=== PATIENT | female | born 1930 | race Caucasian/White ===

== ENCOUNTER 2017-07-02 17:30 | Inpatient (IN) | payer OTHER, MEDICAID ==
[~2017-07-02] VITALS: Ht 152.4 cm; Wt 62.1 kg
[2017-07-02 17:37] VITALS: BP 117/57
[2017-07-02] MEDS ORDERED: LASIX 40 MG TAB40 M2 PO (17:45)
[2017-07-02] MEDS ORDERED: METOLAZONE 2.52.5 M1 PO (17:46)
[2017-07-02] MEDS ORDERED: CARTIA XT120 M1 PO (17:47)
[2017-07-02] MEDS ORDERED: LISINOPRIL5 MG PO (17:48)
[2017-07-02] MEDS ORDERED: JANTOVEN2 MG PO (17:48)
[2017-07-02 18:02] LABS: HEMATOCRIT 32.3 % (37.0-47.0); HEMOGLOBIN 10.4 gm/dL (12.0-15.0); MCH 27.2 pg (26.0-34.0); MCHC 32.1 g/dL (28.0-37.0); MCV 84.8 fL (80.0-100.0); MPV 7.2 fl. (7.2-11.1); NUCLEATED RBCS 0 /100WBC; PLATELET COUNT* 278 thou/uL (150-400); RBC 3.81 mil/uL (4.20-5.00); RDW-CV 17.4 % (10.5-14.5); WBC 9.2 thou/uL (4.0-11.0)
[2017-07-02 18:14] LABS: CALCIUM 8.5 mg/dL (8.5-10.1); CREATININE 1.8 mg/dL (0.6-1.3); POTASSIUM 4.6 mmol/L (3.5-5.1)
[2017-07-02 18:25] LABS: ALBUMIN 2.9 g/dL (3.4-5.0); MAGNESIUM 2.2 mg/dL (1.8-2.4); TOTAL BILIRUBIN 0.7 mg/dL (<0.1-1.0); TOTAL PROTEIN 7.2 g/dL (6.4-8.2)
[2017-07-02 19:13] LABS: BE 1.1 mmol/L (-2 to +3); PCO2 37.2 mmHg (35.0-45.0); PO2 92.2 mmHg (75.0-100.0); pH 7.446 (7.340-7.450)
[2017-07-02 19:39] LABS: ABSOLUTE BASOPHILS 0.1 thou/uL (0.0-0.2); ABSOLUTE EOSINOPHILS 0.1 thou/uL (0.0-0.7); ABSOLUTE LYMPHOCYTES 0.6 thou/uL (0.8-5.3); ABSOLUTE NEUTROPHILS 7.5 thou/uL (1.6-8.1); ANISOCYTOSIS 1+; PLATELET ESTIMATE ADEQUATE
[2017-07-02 19:42] LABS: URINE BILIRUBIN NEGATIVE (Negative); URINE BLOOD TRACE (Negative); URINE CLARITY CLEAR; URINE COLOR STRAW; URINE GLUCOSE-RANDOM NEGATIVE (Negative); URINE KETONES NEGATIVE (Negative); URINE LEUKOCYTES-REFLEX NEGATIVE (Negative); URINE NITRITE-REFLEX NEGATIVE (Negative); URINE PROTEIN NEGATIVE (Negative); URINE UROBILINOGEN 0.2 E.U./dl (0.2-1.0)
[2017-07-02 20:21] VITALS: BP 116/64
[2017-07-03] VITALS: BP 115/75
[2017-07-03 04:00] VITALS: BP 130/75
[2017-07-03 08:25] LABS: APTT 30.8 Seconds (25.0-31.3); INR 1.8; PROTIME 17.7 Seconds (9.20-11.50)
[2017-07-03 08:29] VITALS: BP 137/80
[2017-07-03 12:17] LABS: SOURCE THORACENTESIS
[2017-07-03 15:43] VITALS: BP 95/68
--- NOTE | 2017-07-03 16:50 | 2DMMODE ---
[place] [address] 2 D/M-MODE ECHOCARDIOGRAM Name: SCOTT CALIXTO Room: [address] IN [facility]#: [id number] Admission: 07/02/17 Attend Phys: Love Calvillo, Discharge: Date of : [birth year] Date of Service: 07/03/17 1649 Report #: [id number] THIS REPORT FOR: //name// APPROVED REPORT Study performed: 07/03/2017 14:15:03 EXAM: Comprehensive 2D, Doppler, and color-flow Echocardiogram Patient Location: In-Patient Room #: [facility] Status: routine BSA: 1.61 HR: 88 bpm BP: 137/80 mmHg Rhythm: NSR Other Information Study Quality: Good Indications Congestive Heart Failure Dyspnea Pleural Effusion 2D Dimensions LVEF(%): 76.17 (>50%) IVSd: 8.80 (7-11mm) LVOT Diam: 15.99 (18-24mm) LVDd: 26.35 mm PWd: 9.42 (7-11mm) LVDs: 15.00 (25-40mm) Aortic Root: 28.46 mm Petty's LVEF: 76.17 % Volumes Left Atrial Volume (Systole) LA ESV Index: 50.70 mL/m2 Aortic Valve AoV Peak Addison.: 1.81 m/s AO Peak Gr.: 13.15 mmHg LVOT Max P.22 mmHg AO Mean Gr.: 7.91 mmHg LVOT Mean P.20 mmHg LVOT Max V: 0.75 m/s AO V2 VTI: 31.07 cm LVOT Mean V: 0.52 m/s ADRIEN (VTI): 0.94 cm2 LVOT V1 VTI: 14.62 [place] [address] 2 D/M-MODE ECHOCARDIOGRAM Name: SCOTT CALIXTO Room: [address] IN [facility]#: [id number] Admission: 07/02/17 Attend Phys: Love Calvillo, Discharge: Date of : [birth year] Date of Service: 07/03/17 1649 Report #: [id number] Mitral Valve MV Mean Gr.: 6.63 mmHg Pulmonary Valve PV Peak Addison.: 0.96 m/s PV Peak Gr.: 3.68 mmHg Tricuspid Valve TR Peak Gr.: 17.13 mmHg RVSP: 32.00 mmHg Left Ventricle The left ventricle is normal size. There is normal LV segmental wall motion. There is normal left ventricular wall thickness. Left ventricular systolic function is normal. The left ventricular ejection fraction is within the normal range. LVEF is 60-65%. The left ventricular diastolic function is normal. Right Ventricle Right ventricle is moderately dilated. Right ventricle is moderately hypokinetic. Pacemaker lead is present in the right ventricle. Atria Left atrium is severely dilated. Right atrium is severely dilated. Aortic Valve Moderate aortic valve sclerosis. No aortic regurgitation is present. Mild to moderate aortic stenosis. Mitral Valve The mitral valve is normal in structure. Mild mitral regurgitation. No evidence of mitral valve stenosis. Tricuspid Valve The tricuspid valve is normal in structure. Severe tricuspid regurgitation. The RVSP is 40 mmHg. Pulmonic Valve Pulmonic valve is not well visualized. Mild pulmonic regurgitation. Great Vessels The aortic root is normal in size. IVC is dilated and collapses <50% with inspiration. Pericardium There is no peric[place] [address] 2 D/M-MODE ECHOCARDIOGRAM Name: SCOTT CALIXTO Armando Room: [address] IN [facility].#: [id number] Admission: 07/02/17 Attend Phys: Love Calvillo, Discharge: Date of : [birth year] Date of Service: 07/03/17 1649 Report #: [id number] <Conclusion> LVEF is 60-65%. Right ventricle is moderately dilated. Left atrium is severely dilated. Right atrium is severely dilated. Mild to moderate aortic stenosis. Mild mitral regurgitation. Severe tricuspid regurgitation. The RVSP is 40 mmHg. <ELECTRONICALLY SIGNED> By: Jens Hart MD, FACC 07/03/17 1649 48 Jens Hart MD, [facility] /INF
[2017-07-03 20:08] VITALS: BP 107/65
[2017-07-04] VITALS: BP 90/54
[2017-07-04 04:00] VITALS: BP 118/70
[2017-07-04 05:24] LABS: ABSOLUTE LYMPHOCYTES 0.4 thou/uL (0.8-5.3); ABSOLUTE NEUTROPHILS 7.4 thou/uL (1.6-8.1); BASOPHILS 0.1 %; HEMATOCRIT 31.3 % (37.0-47.0); LYMPHOCYTES 4.3 %; MCH 27.2 pg (26.0-34.0); MCHC 31.8 g/dL (28.0-37.0); MCV 85.3 fL (80.0-100.0); MONOCYTES 11.2 %; MPV 7.2 fl. (7.2-11.1); NUCLEATED RBCS 0 /100WBC; PLATELET COUNT* 243 thou/uL (150-400); POLYS 84.4 %; RBC 3.67 mil/uL (4.20-5.00); RDW-CV 17.7 % (10.5-14.5); WBC 8.7 thou/uL (4.0-11.0)
[2017-07-04 05:30] LABS: APTT 30.9 Seconds (25.0-31.3); PROTIME 19.5 Seconds (9.20-11.50)
[2017-07-04 06:04] LABS: CALCIUM 8.3 mg/dL (8.5-10.1); POTASSIUM 4.6 mmol/L (3.5-5.1)
[2017-07-04 08:00] VITALS: BP 108/61
[2017-07-04 11:52] VITALS: BP 111/61
[2017-07-04 12:05] LABS: BODY FLUID LDH 94 IU/L (()); BODY FLUID PROTEIN 2.1 g/dL (())
[2017-07-04 15:35] VITALS: BP 124/52
[2017-07-04 20:00] VITALS: BP 84/43
[2017-07-05] VITALS: BP 100/54
[2017-07-05 04:00] VITALS: BP 90/54
[2017-07-05 05:43] LABS: ABSOLUTE LYMPHOCYTES 0.4 thou/uL (0.8-5.3); ABSOLUTE MONOCYTES 0.9 thou/uL (0.0-1.2); ABSOLUTE NEUTROPHILS 5.8 thou/uL (1.6-8.1); BASOPHILS 0.1 %; HEMATOCRIT 30.4 % (37.0-47.0); HEMOGLOBIN 9.8 gm/dL (12.0-15.0); LYMPHOCYTES 5.9 %; MCH 27.3 pg (26.0-34.0); MCHC 32.2 g/dL (28.0-37.0); MCV 84.6 fL (80.0-100.0); MONOCYTES 12.8 %; MPV 7.3 fl. (7.2-11.1); NUCLEATED RBCS 0 /100WBC; PLATELET COUNT* 232 thou/uL (150-400); POLYS 81.2 %; RBC 3.59 mil/uL (4.20-5.00); RDW-CV 17.8 % (10.5-14.5); WBC 7.1 thou/uL (4.0-11.0)
[2017-07-05 05:53] LABS: APTT 30.3 Seconds (25.0-31.3); INR 1.6; PROTIME 15.4 Seconds (9.20-11.50)
[2017-07-05 06:17] LABS: CALCIUM 8.3 mg/dL (8.5-10.1); CREATININE 1.9 mg/dL (0.6-1.3); POTASSIUM 4.1 mmol/L (3.5-5.1)
[2017-07-05 08:09] VITALS: BP 95/53
[2017-07-05] MEDS ORDERED: LEVAQUIN 250 M250 MG PO (11:54)
[2017-07-05] MEDS ORDERED: ZESTRIL5 MG PO (11:55)
[2017-07-05] MEDS ORDERED: TYLENOL325 MG PO (12:01)
[2017-07-05] MEDS ORDERED: APAP650 PO (12:02)
[2017-07-05] MEDS ORDERED: LASIX 20 MG TAB20 MG PO (12:03)
[2017-07-05] MEDS ORDERED: HYDROXYZINE HCL25 M1 PO (12:05)
[2017-07-05] MEDS ORDERED: DUONEB 2.5-0.5 M3 ML INH (12:06)
[2017-07-05 12:09] VITALS: BP 95/53
[2017-07-05] MEDS ORDERED: ONDANSETRON HCL4 M2 PO (12:57)
--- NOTE | 2017-07-05 13:59 | CNG ---
[address] [address] CYTO-NONGYN REPORT PROCEDURE Name: SCOTT CONTI Room: [address] IN [facility].#: [id number] Admission: 07/02/17 Date of : [birth year] Discharge: Report #: [id number] Path Case #: [id number] CYTOPATHOLOGY REPORT COLLECTION DATE: 07/03/2017 RECEIVED DATE: 07/04/2017 SUBMITTING PHYS: Dr. Krish Hooks OTHER PHYS: Dr. Mele King CLINICAL HISTORY: Respiratory distress, pulmonary effusion and leg weeping SPECIMEN(S) RECEIVED: A.Pleural fluid, Right * * * * * * * * * * * * FINAL DIAGNOSIS: A. Pleural fluid, Right: - No malignant cells identified. - Few reactive mesothelial cells and inflammatory cells present. (GABE:mml; 07/05/2017) PATHOLOGIST: Leighton Jarvis M.D. REPORT ELECTRONICALLY SIGNED BY: Leighton Jarvis M.D. DATE/TIME: 07/05/2017 13:58 * * * * * * * * * * * * GROSS PATHOLOGY: A. Pleural fluid, Right: The specimen is submitted fixed, labeled "Scott Conti". Received by the Cytology Department is 65 mL of cloudy yellow fluid. One ThinPrep slide and a formalin fixed cell block were prepared. (lg07.04.2017) FELT STRIP FINISHER(S): Lina Hughes MAXIMO([facility]) INITIAL CPT CODE(S): A; 34704, 22839 Professional services performed by [facility] at [facility], [address] [place], [place] [address]ula, [place] [address]. Technical services performed by [facility] at [address] [place] [address]., [address], [place] [address]. [facility] [address] [place] [address], [address] [place] [address] PHONE: [phone] DIRECTOR: Wali Baker M.D. [address] [address] CYTO-NONGYN REPORT PROCEDURE Name: SCOTT CONTI Room: [address] IN ..#: [id number] Admission: 07/02/17 Date of : [birth year] Discharge: Report #: [id number] Path Case #: [id number] * * * END OF REPORT * * *
--- NOTE | 2017-07-05 18:15 | CON ---
[address] [address] CONSULTATION Name: DURGASCOTT L Room: [address] IN .R.#: [id number] Admission: 07/02/17 Attend Phys: Love Calvillo MD Discharge: 07/05/17 Date of : [birth year] Report #: [id number] THIS REPORT FOR: //name// CC: Love ESQUIVELEW SHERRI DATE OF SERVICE: 07/05/2017 Cardiology Consultation HISTORY OF PRESENT ILLNESS: The patient is an 87-year-old single white female who I was asked to see in the hospital today after she complained of being short of breath. The patient's history was obtained from the patient herself, some old records. Unfortunately, the patient has never been hospitalized here at [facility] before. I did find a note from my partner, Dr. Magaña, who saw her back in October 2015 prior to undergoing hip, knee replacement surgery. The patient has a history of permanent atrial fibrillation and had a [employer] single lead pacemaker inserted in January 2013. However, she is not sure what hospital the pacemaker was inserted at. When Dr. Magaña saw the patient back in 2015, she denied any significant complaints. The patient had an echocardiogram in 2013, showed an ejection fraction 55%. Stress test in 2012 showed no evidence of ischemia. The patient is not very active because of her age. She currently lives with a daughter in [place], [place]. She apparently has been followed by [facility] cardiovascular consultants. I obtained some records that notes that the patient was actually just seen in the Cardiology Clinic on July 01 or 4 days ago[address] She saw Dr. Mihai Child for her atrial fibrillation. Apparently, no changes were made at that time. The patient was brought to the emergency room 3 days ago with shortness of breath and a cough. The patient was weak and had edema. Because of shortness of breath, I was asked to see her for further evaluation and treatment. She denies any recent chest pain, palpitations or syncope. PAST MEDICAL HISTORY: Otherwise significant for knee replacement. Apparently, she had an embolectomy from the left leg in the past. She has had a hysterectomy. She has a history of permanent atrial fibrillation, sick sinus syndrome, chronic kidney disease. MEDICATIONS: On admission consisted of Lasix, metolazone, Cardizem-CD, warfarin, lisinopril. ALLERGIES: She had an intolerance to SULAR. FAMILY HISTORY: No history of heart disease. SOCIAL HISTORY: She is . No longer smokes. [place] [address] CONSULTATION Name: SCOTT CALIXTO Room: [address]#: [id number] Admission: 07/02/17 Attend Phys: Love Calvillo MD Discharge: 07/05/17 Date of : [birth year] Report #: [id number] REVIEW OF SYSTEMS: The patient states she has had a stroke in the past. No history of asthma. She has had a peptic ulcer. She has had chronic kidney disease, no cancer. No psychiatric illness. PHYSICAL EXAMINATION: GENERAL: Revealed an elderly frail appearing female who was lying in bed. She appeared in no distress. VITAL SIGNS: She had a blood pressure of 100/60, pulse is 90. She is afebrile. HEENT: She was anicteric. Conjunctivae were pale. Mucous membranes appear dry. NECK: Veins do not appear distended. CHEST: Without coarse breath sounds bilaterally. CARDIAC: Regular rate rhythm, grade 2 systolic ejection murmur. ABDOMEN: Soft. EXTREMITIES: Had trace edema. Dorsalis pedis pulse cannot be palpated. SKIN: Cool and dry. NEUROLOGIC: Nonfocal. DIAGNOSTIC DATA: Her workup so far on the monitor, she appears to be in atrial fibrillation. No pacer spikes are noted. Her echocardiogram done 2 days ago here at [facility] showed an ejection fraction 60%, biatrial enlargement. The right ventricle is dilated. There was evidence at least mild aortic stenosis with a peak gradient across the aortic valve of 14 mmHg. There is mild severe tricuspid insufficiency. Pulmonary artery pressure 40 mmHg. The patient has had multiple chest x-rays since her admission 3 days ago, included initial chest x-ray that showed a right pleural effusion. Pulmonary vasculature appeared normal. She had a VQ scan of the lungs that showed low probability for PE. She had a thoracentesis performed. LABORATORY DATA: Sodium 142, BUN 75, creatinine 1.9. BNP 3119. INR 1.6. White blood cell count 7.1, hemoglobin 9.8. IMPRESSION AND RECOMMENDATIONS: 1. Shortness of breath. Suspect bronchitis. 2. Atrial fibrillation. Warfarin on hold for possible thoracentesis. The patient has been on diltiazem for rate control. 3. Sick sinus syndrome. The patient has ventricular pacemaker . Appears to be followed by [facility]. 4. Cor pulmonale with right heart failure. The patient has been on diuretics. Noted to have severe tricuspid insufficiency. 5. Degenerative joint disease. [address] [address] CONSULTATION Name: SCOTT CALIXTO Room: [address] IN [facility]#: [id number] Admission: 07/02/17 Attend Phys: Love Calvillo MD Discharge: 07/05/17 Date of : [birth year] Report #: [id number] 6. Chronic kidney disease. 7. Anemia. No history of bleeding. <ELECTRONICALLY SIGNED> By: Jens Hart MD, FACC 07/05/17 1815 0913 [id number] Hart MD, FACC /nt
== END 2017-07-05 15:25 | DRG 291 ==
LOC: M.ERS 17:30 → M.TBA-ER 19:15 → M.2W 19:15
PROVIDERS: Internal Medicine; Personal Emergency Response Attendant; ADMIT Internal Medicine
PROC: 0W993ZX Drainage of Right Pleural Cavity, Percutaneous Approach, Diagnostic (ICD-10-PCS; principal; 2017-07-03)
DX: I13.0 Hypertensive heart and chronic kidney disease with heart failure and stage 1 through stage 4 chronic kidney disease, or unspecified chronic kidney disease (principal); I50.33 Acute on chronic diastolic (congestive) heart failure; N18.4 Chronic kidney disease, stage 4 (severe); J98.11 Atelectasis; J90 Pleural effusion, not elsewhere classified; E44.1 Mild protein-calorie malnutrition; R65.10 Systemic inflammatory response syndrome (SIRS) of non-infectious origin without acute organ dysfunction; I27.81 Cor pulmonale (chronic); I49.5 Sick sinus syndrome; I07.1 Rheumatic tricuspid insufficiency; I48.91 Unspecified atrial fibrillation; M19.90 Unspecified osteoarthritis, unspecified site; D64.9 Anemia, unspecified; Z88.6 Allergy status to analgesic agent; Z88.8 Allergy status to other drugs, medicaments and biological substances; Z79.01 Long term (current) use of anticoagulants; Z86.73 Personal history of transient ischemic attack (TIA), and cerebral infarction without residual deficits; Z95.0 Presence of cardiac pacemaker; Z79.899 Other long term (current) drug therapy; Z90.710 Acquired absence of both cervix and uterus